=== PATIENT | female | born 1980 | race Caucasian/White ===

== ENCOUNTER 2016-09-25 19:53 | Emergency (ER) | payer OTHER ==
--- NOTE | 2016-09-26 02:19 | ER Document Report ---
ED General - General Chief Complaint: Abdominal Pain Stated Complaint: FALL/SIDE PAIN Notes: Patient is a 36-year-old female presents with complaint of being 16 weeks and falling. She says she slipped on a piece of paper fell onto her left side. Some mild pain in left hip. Some mild pain in her left side. She also hit her elbow but says she does have some bruising there. She has no pain with range of motion of her elbow. She does have some pain in her left knee but says she has chronic arthritis in her left knee and has still been able to bear weight and walk without difficulty. She's had no vaginal bleeding. No other complaints at this time. Previous records show that she is AB+. TRAVEL OUTSIDE OF THE [place] IN LAST 30 DAYS: No - Related Data Allergies/Adverse Reactions: Sulfa (Sulfonamide Antibiotics) Adverse Reaction (Severe, Verified 08/21/12 15: 21) trouble breathing naproxen [From Naprosyn] Adverse Reaction (Mild, Verified 08/21/12 15:21) Hives Past Medical History - Social History Smoking Status: Never Smoker Frequency of alcohol use: None Drug Abuse: None Family History: Reviewed & Not Pertinent Patient has suicidal ideation: No Patient has homicidal ideation: No - Past Medical History Cardiac Medical History: Denies: Hx Coronary Artery Disease, Hx Heart Attack, Hx Hypertension Pulmonary Medical History: Denies: Hx Asthma, Hx Bronchitis, Hx COPD, Hx Pneumonia Neurological Medical History: Denies: Hx Cerebrovascular Accident, Hx Seizures Renal/ Medical History: Denies: Hx Peritoneal Dialysis GI Medical History: Reports: Hx Gastroesophageal Reflux Disease Musculoskeltal Medical History: Reports Hx Arthritis Past Surgical History: Reports: Hx Appendectomy, Hx Cholecystectomy. Denies: Hx Hysterectomy - Immunizations Hx Diphtheria, Pertussis, Tetanus Vaccination: No Review of Systems - Review of Systems Notes: My Normal Review Basic REVIEW OF SYSTEMS: CONSTITUTIONAL : Denies fever, chills, or sweats. Denies recent illness. CARDIOVASCULAR: Denies chest pain. RESPIRATORY: Denies cough, cold, or chest congestion. Denies shortness of breath, difficulty breathing, or wheezing. GASTROINTESTINAL: Mild left-sided abdominal pain. Denies nausea, vomiting, or diarrhea. Denies constipation. Last BM: GENITOURINARY: Denies difficulty urinating, painful urination, burning, frequency, or blood in urine. FEMALE GENITOURINARY: Denies vaginal bleeding, abnormal or irregular periods. LMP: Currently 16 weeks . MUSCULOSKELETAL: Mild left hip pain. Mild left elbow pain. SKIN: Denies rash or skin lesions. NEUROLOGICAL: Denies altered mental status or loss of consciousness. Denies headache. Denies weakness or paralysis or loss of use of either side. Denies problems with gait or speech. Denies sensory or motor loss. ALL OTHER SYSTEMS REVIEWED AND NEGATIVE. Physical Exam - Vital signs Vitals: Temp Pulse Resp BP Pulse Ox 98.3 F 81 18 130/60 H 98 09/25/16 20:51 09/25/16 20:51 09/25/16 20:51 09/25/16 20:51 09/25/16 20:51 - Notes Notes: General Appearance: Well nourished, alert, cooperative, no acute distress, no obvious discomfort. Well-appearing. Vitals: reviewed, See vital signs table. Head: no swelling or tenderness to the head Eyes: PERRL, EOMI, Conjuctiva clear Neck: Supple, no neck tenderness, Lungs: No wheezing, No rales, No rhonci, No accessory muscle use, good air exchange bilaterally. Heart: Normal rate, Regular rythm, No murmur, no rub Abdomen: Normal BS, soft, No rigidity, No reproducible abdominal tenderness to palpation, No guarding, no rebound, no abdominal masses, no organomegaly Back: No tenderness to palpation of the thoracic or lumbar spine. No step-offs or deformities. Extremities: strength 5/5 in all extremities, good pulses in all extremities, small bruise of her elbow. Patient has full flexion-extension of her elbow without pain or difficulty. She has full supination and pronation of the elbow without pain or difficulty. Very minimal pain palpation of the elbow. No pain in the wrist or hand. No pain in left shoulder. Patient has mild pain to palpation of left hip. She still is full range of motion of the hip without difficulty. She has some mild pain to left knee with full flexion. No bruising or swelling to the knee itself. She is able to bear weight without difficulty. Right-sided extremities are nontender., no edema. Skin: warm, dry, appropriate color, no rash Neuro: speech clear, oriented x 3, normal affect, responds appropriately to questions. Cranial nerves II through XII are intact. Course - Vital Signs Vital signs: Temp Pulse Resp BP Pulse Ox 98.3 F 85 16 119/68 100 09/25/16 20:51 09/26/16 04:14 09/26/16 04:14 09/26/16 04:14 09/26/16 04:14 - Transfer of Care Notes: 09/26/16 05:21 Patient is well-appearing. Her ultrasound shows normal IUP with good activity heart rate. At this time for patient safety discharged home. She is no bruising or swelling to abdomen. There is no indication for x-rays at this time. Encourage her to return to ER shows worsening pain, vaginal bleeding, or feels unwell. Patient agrees with plan and will be discharged home. Dictation of this chart was performed using voice recognition software; therefore, there may be some unintended grammatical errors. Discharge - Discharge Clinical Impression: Fall Qualifiers: Encounter type: initial encounter Qualified Code(s): W19.XXXA - Unspecified fall, initial encounter Qualifiers: Weeks of gestation: unspecified Qualified Code(s): Z33.1 - state, incidental Condition: Good Disposition: HOME, SELF-CARE Additional Instructions: Please return to the ER immediately if you have vaginal bleeding, severe abdominal pain, or feel unwell. Follow up with your OB doctor in 2-3 days for reevaluation.
[2016-09-26 04:15] VITALS: BP 119/68
== END 2016-09-26 04:13 | disposition home or self-care (01) ==
LOC: ER 19:53
DX: O9A.212 Injury, poisoning and certain other consequences of external causes complicating pregnancy, second trimester (principal); S50.00XA Contusion of unspecified elbow, initial encounter; W01.0XXA Fall on same level from slipping, tripping and stumbling without subsequent striking against object, initial encounter; O26.892 Other specified pregnancy related conditions, second trimester; R10.9 Unspecified abdominal pain; O99.89 Other specified diseases and conditions complicating pregnancy, childbirth and the puerperium; M25.552 Pain in left hip; M25.522 Pain in left elbow; M17.12 Unilateral primary osteoarthritis, left knee; Z3A.16 16 weeks gestation of pregnancy
CPT/HCPCS: 76805; 93976; 99284

== ENCOUNTER 2016-11-05 19:10 | Outpatient (CLI) | payer OTHER ==
[2016-11-05 20:08] LABS: APPEARANCE,URINE CLOUDY; BILIRUBIN,URINE NEGATIVE (NEGATIVE); GLUCOSE, URINE NEGATIVE (NEGATIVE); KETONES,URINE NEGATIVE (NEGATIVE); LEUKOCYTE ESTERASE,URINE MODERATE (NEGATIVE); NITRITE,URINE NEGATIVE (NEGATIVE); PROTEIN,URINE 30 mg/dL (NEGATIVE); URINE SPECIFIC GRAVITY 1.017; UROBILINOGEN,URINE NEGATIVE mg/dL (<2.0)
[2016-11-05] MEDS ORDERED: ONDANSETRON 4 MG TAB.RAPDIS PO ONE (20:15)
[2016-11-05] MEDS ORDERED: ONDANSETRON 4 MG TAB.RAPDIS ONE (20:20)
[2016-11-05 20:32] LABS: URINE BARBITURATES SCREEN NEGATIVE; URINE METHADONE SCREEN NEGATIVE; URINE OPIATES LOW NEGATIVE; URINE PHENCYCLIDINE SCREEN NEGATIVE
--- NOTE | 2016-11-05 21:22 | RADIOLOGY REPORT (SQ) ---
EXAM DESCRIPTION: U/S OB LIMITED COMPLETED DATE/TIME: 11/05/2016 8:54 pm REASON FOR STUDY: cervical length pre term labor COMPARISON: None. TECHNIQUE: Limited transvaginal and transabdominal grayscale ultrasound for evaluation of specific r equested obstetrical parameters. LIMITATIONS: None. FINDINGS: CERVICAL LENGTH: 3.1 cm Closed. FHR: 158 beats per minute. OTHER: No other significant findings. IMPRESSION: LIMITED OBSTETRICAL ULTRASOUND WITH MEASURED PARAMETERS DELINEATED ABOVE. Trimester of : Third trimester - 28 weeks to delivery. TECHNICAL DOCUMENTATION: JOB ID: [id number] [employer]- All Rights Reserved
[2016-11-05] MEDS ORDERED: ACETAMINOPHEN 325 MG TABLET ONE (21:24)
== END 2016-11-05 21:30 | disposition home or self-care (01) ==
LOC: LC 19:10
PROVIDERS: ATTEND Student in an Organized Health Care Education/Training Program
PROC: 4A1HXCZ Monitoring of Products of Conception, Cardiac Rate, External Approach (ICD-10-PCS; principal; 2016-11-05)
DX: O47.02 False labor before 37 completed weeks of gestation, second trimester (principal); O99.282 Endocrine, nutritional and metabolic diseases complicating pregnancy, second trimester; E86.0 Dehydration; R11.2 Nausea with vomiting, unspecified; Z3A.22 22 weeks gestation of pregnancy
CPT/HCPCS: 59899; 87086; 81001; 80307; 76815; S0119

== ENCOUNTER 2017-02-27 20:48 | Inpatient (IN) | payer OTHER ==
[2017-02-27] MEDS ORDERED: RINGERS SOLUTION,LACTATED 300 ML IV ONE (21:32)
[2017-02-27] MEDS ORDERED: RINGERS SOLUTION,LACTATED 1,000 ML IV PRN (21:32)
[2017-02-27] MEDS ORDERED: OXYTOCIN/NORMAL SALINE 20 UNIT/1,000 ML RTUINJ IV PRN (21:32)
[2017-02-27] MEDS ORDERED: ACETAMINOPHEN 325 MG TABLET PO PRN (21:32)
[2017-02-27] MEDS ORDERED: ZOLPIDEM TARTRATE 5 MG TABLET PO PRN (21:32)
[2017-02-27] MEDS ORDERED: DINOPROSTONE 10 MG VAGINAL INSERT.SR PV ONE (21:32)
[2017-02-27] MEDS ORDERED: MAG HYDROX/AL HYDROX/SIMETH SUSP 30 ML UDCUP PO PRN (21:32)
[2017-02-27] MEDS ORDERED: DINOPROSTONE 10 MG VAGINAL INSERT.SR ONE (21:46)
[2017-02-27 21:48] LABS: ABSOLUTE BASOPHILS # (AUTO) 0.1 10^3/uL (0.0-0.2); ABSOLUTE EOSINOPHILS # (AUTO) 0.1 10^3/uL (0.0-0.6); ABSOLUTE MONOCYTES (AUTO) 0.4 10^3/uL (0.1-1.4); ABSOLUTE NEUT (AUTO) 6.2 10^3/uL (1.7-8.2); BASOPHILS % (AUTO) 0.6 % (0-2); EOSINOPHILS % (AUTO) 0.7 % (0-6); HEMATOCRIT 30.7 % (36.0-47.0); HEMOGLOBIN 10.6 g/dL (12.0-15.5); HGB HCT DIFFERENCE 1.1; LYMPHOCYTES % (AUTO) 22.7 % (13-45); MEAN CORPUSCULAR HEMOGLOBIN 27.8 pg (27.0-33.4); MEAN CORPUSCULAR HGB CONC 34.5 g/dL (32.0-36.0); MEAN CORPUSCULAR VOLUME 81 fl (80-97); MONOCYTES % (AUTO) 4.6 % (3-13); RED BLOOD COUNT 3.81 10^6/uL (3.72-5.28); SEGMENTED NEUTROPHILS % (AUTO) 71.4 % (42-78); WHITE BLOOD COUNT 8.7 10^3/uL (4.0-10.5)
[2017-02-27 21:49] LABS: APPEARANCE,URINE SLIGHTLY-CLOUDY; BILIRUBIN,URINE NEGATIVE (NEGATIVE); GLUCOSE, URINE NEGATIVE (NEGATIVE); KETONES,URINE 20 mg/dL (NEGATIVE); LEUKOCYTE ESTERASE,URINE TRACE (NEGATIVE); NITRITE,URINE NEGATIVE (NEGATIVE); PROTEIN,URINE 30 mg/dL (NEGATIVE); URINE SPECIFIC GRAVITY 1.018
[2017-02-27 22:08] LABS: URINE BARBITURATES SCREEN NEGATIVE; URINE METHADONE SCREEN NEGATIVE; URINE OPIATES LOW NEGATIVE; URINE PHENCYCLIDINE SCREEN NEGATIVE
[2017-02-28] MEDS ORDERED: MISOPROSTOL 0.2 MG TABLET ONE (10:53)
[2017-02-28] MEDS ORDERED: OXYTOCIN/NORMAL SALINE 0 UNIT/0 ML RTUINJ ONE (10:54)
[2017-02-28] MEDS ORDERED: LIDOCAINE 1% INJ-PF (10 MG/ML) 30 ML SDV ONE (10:54)
[2017-02-28] MEDS ORDERED: OXYTOCIN/NORMAL SALINE 20 UNIT/1,000 ML RTUINJ ONE (12:37)
[2017-02-28] MEDS ORDERED: IBUPROFEN 800 MG TABLET ONE (15:56)
[2017-02-28] MEDS ORDERED: ACETAMINOPHEN 325 MG TABLET ONE ×2 (16:06→16:09)
--- NOTE | 2017-02-28 16:25 | Delivery Summary ---
Del Sum A-C Datetime Report Generated by CPN: 02/28/2017 16:25 DELIVERY PERSONNEL DELIVERY PERSONNEL: [id number] Delivery Doctor:: Elzbieta Diaz CNM Labor and Delivery Nurse:: Ernst Monique RN Nursery Nurse:: Ning Ruiz, RN MATERNAL INFORMATION Delivery Anesthesia: None Medications After Delivery: Pitocin Bolus-Please Comment Maternal Complications: None Provider Comments: SVDVM ISAURO with loose nuchal cord, reduced, compound rt hand delivered followed by body. vigorous, handed off to mother. Cord clamped after 2 min, cut per FOB. Placenta spont via harper. Apgars 9,9. EBL 150. Mother and stable. LABOR SUMMARY EDC: 03/07/2017 00:00 No. Babies in Womb: 1 Attempted: No Labor Anesthesia: None LABOR INFORMATION Onset of Labor: 02/28/2017 09:01 Complete Dilatation: 02/28/2017 13:39 Cervical Ripening Agents: Cervidil Oxytocin: Augmentation Group B Beta Strep: negative Steroids Given: None Reason Steroids Not Administered: Not Applicable MEMBRANES Membranes Rupture Method: Artificial Rupture of Membranes: 02/28/2017 09:06 Length of Rupture (hr): 4.75 Amniotic Fluid Color: Clear Amniotic Fluid Amount: Large Amniotic Fluid Odor: Normal STAGES OF LABOR Stage 1 hr: 4 Stage 1 min: 38 Stage 2 hr: 0 Stage 2 min: 12 Stage 3 hr: 0 Stage 3 min: 18 Total Time in Labor hr: 5 Total Time in Labor min: 8 VAGINAL DELIVERY Episiotomy: None Laceration #1: Perineal; Vaginal Laceration Extension #1: First Degree Laceration Repair: Yes Laceration Repair Note: 1* vaginal/perineal lac repaired with lidocaine and chromic suture BABY A INFORMATION Infant Delivery Date/Time: 02/28/2017 13:51 Method of Delivery: Vaginal Born in Route : No : N/A Forceps: N/A Vacuum Extraction: N/A Shoulder Dystocia : No PRESENTATION/POSITION BABY A Presentation: Cephalic Cephalic Presentation: Vertex Vertex Position: Right Occipital Anterior Breech Presentation: N/A PLACENTA INFORMATION BABY A Placenta Delivery Time : 02/28/2017 14:09 Placenta Method of Delivery: Spontaneous Placenta Status: Delivered SCORES BABY A Heart Rate 1 min: >100 bpm Resp Effort 1 min: Good Cry Reflex Irritability 1 min: Cough or Sneeze or Pulls Away Muscle Tone 1 min: Active Motion Color 1 min: Body [employer], Extremities Blue Resuscitation Effort 1 min: Tactile Stimulation SCORE 1 MIN: 9 Heart Rate 5 min: >100 bpm Resp Effort 5 min: Good Cry Reflex Irritability 5 min: Cough or Sneeze or Pulls Away Muscle Tone 5 min: Active Motion Color 5 min: Body [employer], Extremities Blue Resuscitation Effort 5 min: Tactile Stimulation SCORE 5 MIN: 9 INFORMATION BABY A Gestational Age at Delivery: 39.0 Gestational Status: Full Term- 39- 40.6 Weeks Outcome : Liveborn Infant Condition : Stable Infant Sex: Male IDENTIFICATION BABY A Infant Verification Date/Time: 02/28/2017 13:58 ID Band Number: [id number] Mother's Name Verified: Yes RN Verifying : Carolina Castro RN/Reshma Hernándezs,RN WEIGHT/LENGTH BABY A Infant Birthweight (gm): 3225 Infant Weight (lb): 7 Weight (oz): 2 Length (in): 21.50 Length (cm): 54.61 CORD INFORMATION BABY A No. Cord Vessels: 3 Nuchal Cord : Around Neck x1, Loose Nuchal Cord- Other: compound hand Cord Blood Taken: Yes-For Storage (Mom's Blood type +) Suction: Mouth ASSESSMENT BABY A Complications: None Physical Findings at Delivery: Within Normal Limits Infant Respirations: Appears Normal Skin to Skin: Yes Skin to Skin Time (min): 60 Cruise Counselor/ALS Called : No Care By: Jose Antonio Ruiz RNC Transferred To: Remains with Mother SIGNATURES Assignment: Bren Phan MD Signature: with User ID: [email or web address] : I was personally available for consultation and serving as supervising physician for the MLP.
--- NOTE | 2017-02-28 16:37 | Admission Physical ---
Datetime Report Generated by CPN: 02/28/2017 16:37 CURRENT ADMISSION Chief Complaint: Scheduled Induction of Labor Indication for Induction: Maternal Diabetes Indication for Induction: Term, Intrauterine ; No Active Labor; Intact Membranes; Induction of Labor Indication for Induction- Other: A2GDM Admit Plan: Admit to Unit; Initiate Labor Induction Protocol ALLERGIES Medication Allergies: Yes Medication Allergies: Sulfa (Sulfonamide Antibiotics)/SV/trouble breathi (11/05/2016); naproxen/MD/Hives (11/05/2016) Medication Allergies: Sulfa (Sulfonamide Antibiotics)/SV/trouble breathi (08/21/2012); naproxen/MD/Hives (08/21/2012) Latex: No Latex Allergies OBSTETRICAL HISTORY EDC: 03/07/2017 00:00 : 4 Para: 3 Term: 3 : 0 SAB: 0 IAB: 0 Ectopic: 0 Livin Cesareans: 0 VBACs: 0 Multiple Births: 0 Gestational Diabetes: Yes Rh Sensitization: No Incompetent Cervix: No BASILIO: No Infertility: No ART Treatment: No Uterine Anomaly: No IUGR: No Hx Previous C/S: No Macrosomia: No Hx Loss/Stillborn: No PIH: No Hx : No Placenta Previa/Abruption: No Depression/PP Depression: No PTL/PROM: No Post Hemorrhage: No Current Procedures: Ultrasound; NST Obstetrical History Comments: G1: 2006 39 wk G2: 2008 40.5 macrosomic G3: 40 wk delivered at home G4: current SEE RECORDS Alcohol: No Marijuana : No Cocaine: No Other Illicit Drugs: No Cigarettes: Never Smoker. [id number] MEDICAL HISTORY Diabetes Type: Gestational Diabetes Blood Transfusion: No Pulmonary Disease (Asthma, TB): No Breast Disease: No Hypertension: No Vp Care Management Surgery: No Heart Disease: No Hosp/Surgery: Yes Autoimmune Disorder: No Anesthetic Complications: No Kidney Disease: No Abnormal Pap Smear: No Neuro/Epilepsy: No Psychiatric Disorders: No Other Medical Diseases: No Hepatitis/Liver Disease: No Significant Family History: No Varicosities/Phlebitis: No Trauma/Violence : No Thyroid Dysfunction: No Medical History Comments: Appendectomy 2000, gallbladder 2000 INFECTIOUS HISTORY Gonorrhea: No Genital Herpes: No Chlamydia: No Tuberculosis: No Syphilis: No Hepatitis: No HIV/AIDS Exposure: No Rash or Viral Illness: No PHYSICAL EXAM General: Normal HEENT: Normal Neurologic: Normal Thyroid: Normal Heart: Normal Lungs: Normal Breast: Deferred Back: Normal Abdomen: Normal Genitourinary Exam: Normal Extremities: Normal DTRs: Normal Pelvic Type: Adequate Vital Signs: Reviewed VAGINAL EXAM Dilatation: 0 Effacement: 0 Station: -3 Contraction Comments: 0 MEMBRANES Membranes: Intact FETUS A EGA: 38.6 Monitoring: External US FHR- Baseline: 155 Variability: Moderate 6-25bpm Accelerations: 15X15 Decelerations: None FHR Category: Category I Presentation: Vertex Admit Comment: 36yo at 38+6ega presents for IOL due to A2GDM on Glyburide 1.25mg po Qam. c/b A2GDM and h/o precipitous delivery at home in the past. EFW on 02/11 was 41.3% 2855g. Pt has had intermittent polyhydramnios. Last LEVY 25.11 and SDP 7.21 - by SDP not polyhydramnios. Pt o/w doing well. unfavorable cervix but h/o prior deliveries. cvx ft//hi. Admit for cervidil. Poss cooks catheter and pitocin in the am depending on cervical exam when cervidil is up. CAT I FHR tracing. Anticpate PLANS FOR LABOR AND DELIVERY Labor and Delivery: None Pain Management: Natural Feeding Preference: Breast Benefit of Breast Feed Discussed: Yes Circumcision: Yes INFORMED CONSENT Informed Consent Obtained: Vaginal Delivery; Induction of Labor; Risks, Benefits and Alternatives Discussed Signature: Electronically signed by Claudia Ordonez MD ([facility]) on 02/27/2017 at 22:56 with User ID: [email or web address]
[2017-02-28] MEDS ORDERED: OXYTOCIN/NORMAL SALINE 20 UNIT/1,000 ML RTUINJ IV PRN (16:54)
[2017-02-28] MEDS ORDERED: BENZOCAINE/MENTHOL AEROSOL SPRAY 56 ML TOP PRN (16:54)
[2017-02-28] MEDS ORDERED: MEASLES,MUMPS&RUBELLA VACC/PF 0.5 ML VIAL SUBCUT PRN (16:54)
[2017-02-28] MEDS ORDERED: ACETAMINOPHEN WITH CODEINE #3 TABLET PO PRN ×2 (16:54)
[2017-02-28] MEDS ORDERED: DIBUCAINE 1% OINTMENT 28 GM TP PRN (16:54)
[2017-02-28] MEDS ORDERED: DIPH/PERTUSS(ACELL)/TETANUS VAC/PF 0.5 ML SYR (>=10YO) IM PRN (16:54)
[2017-02-28] MEDS ORDERED: ZOLPIDEM TARTRATE 5 MG TABLET PO PRN (16:54)
[2017-02-28] MEDS: DOCUSATE SODIUM 100 MG CAPSULE PO SCH (18:16)
[2017-02-28] MEDS: FERROUS SULFATE 325 MG TABLET PO SCH (18:16)
[2017-02-28] MEDS: IBUPROFEN 800 MG TABLET PO SCH (21:44)
[2017-03-01] MEDS: IBUPROFEN 800 MG TABLET PO SCH ×3 (05:45→22:23)
[2017-03-01 07:37] LABS: HEMATOCRIT 32.2 % (36.0-47.0); HEMOGLOBIN 10.7 g/dL (12.0-15.5); HGB HCT DIFFERENCE -0.1; MEAN CORPUSCULAR HEMOGLOBIN 27.1 pg (27.0-33.4); MEAN CORPUSCULAR HGB CONC 33.2 g/dL (32.0-36.0); MEAN CORPUSCULAR VOLUME 82 fl (80-97); RED BLOOD COUNT 3.94 10^6/uL (3.72-5.28); RED CELL DISTRIBUTION WIDTH 15.2 % (11.5-14.0)
[2017-03-01] MEDS: PRENATAL VITAMIN W-O CA NO5/FE FUMARATE/FA CAPSULE PO SCH (09:37)
[2017-03-01] MEDS: SENNOSIDES/DOCUSATE 8.6-50 MG 1 EACH TABLET PO SCH (09:38)
[2017-03-01] MEDS: DOCUSATE SODIUM 100 MG CAPSULE PO SCH ×2 (09:38→17:49)
[2017-03-01] MEDS: FERROUS SULFATE 325 MG TABLET PO SCH ×2 (09:38→17:49)
--- NOTE | 2017-03-01 10:26 | PDOC PROGRESS REPORT ---
Subjective-OB Subjective: Post Delivery Day: 1 36 year old. Denies any needs at this time, states lochia is stable, pain is well controlled, voiding without difficulty, passing gas, tolerating diet. Physical Exam (OB) Vital Signs: Temp Pulse Resp BP Pulse Ox 97.9 F 64 16 106/58 L 99 03/01/17 07:42 03/01/17 07:42 03/01/17 07:42 03/01/17 07:42 03/01/17 07:42 Intake & Output 02/28/17 03/01/17 03/02/17 06:59 06:59 06:59 Weight 101.05 kg - Lochia Lochia Amount: Small 10-25 ml Lochia Color: Rubra/Red - Abdomen Description: Soft, Round Hernia Present: No Fundal Description: Firm, Midline Fundal Height: u/u - u/2 Objective-Diagnostic Laboratory: 03/01/17 06:50 03/01/17 06:50 WBC 9.0 RBC 3.94 Hgb 10.7 L Hct 32.2 L MCV 82 MCH 27.1 MCHC 33.2 RDW 15.2 H Plt Count 172 Assessment and Plan(PN) - Assessment and Plan (1) Delivery normal Is this a current diagnosis for this admission?: Yes Plan: routine pp care - Time Spent with Patient Time with patient: Less than 15 minutes Critical Time spent with patient: Less than 15 minutes Medications reviewed and adjusted accordingly: Yes - Disposition Anticipated Discharge: Home Within: within 24 hours
[2017-03-02] MEDS: IBUPROFEN 800 MG TABLET PO SCH (06:18)
[2017-03-02] MEDS: FERROUS SULFATE 325 MG TABLET PO SCH (09:04)
[2017-03-02] MEDS: DOCUSATE SODIUM 100 MG CAPSULE PO SCH (09:04)
[2017-03-02] MEDS: PRENATAL VITAMIN W-O CA NO5/FE FUMARATE/FA CAPSULE PO SCH (09:04)
[2017-03-02] MEDS: SENNOSIDES/DOCUSATE 8.6-50 MG 1 EACH TABLET PO SCH (09:04)
[2017-03-02 09:33] VITALS: BP 118/65
--- NOTE | 2017-03-02 09:36 | PDOC DISCHARGE SUMMARY ---
Final Diagnosis Discharge Date: 03/02/17 - Final Diagnosis (1) Delivery normal Is this a current diagnosis for this admission?: Yes Discharge Data - Discharge Medication Home Medications: No122/Iron/Folic Acid [ Multi Tablet] 1 tab PO DAILY 11/05/16 Ranitidine HCl [Zantac 150 mg Tablet] 150 mg PO DAILY MDD 1 tab 11/05/16 Docusate Sodium [Colace 100 mg Capsule] 100 mg PO BID #60 capsule 03/02/17 Ibuprofen [Motrin 800 mg Tablet] 800 mg PO Q8 #60 tablet 03/02/17 Gestational Age: 39 Reason(s) for Admission: Induction of Labor, Gestional Diabetes Procedures: NST Intrapartum Procedure(s): Spontaneous Vaginal Delivery Complication(s): Laceration-Vaginal Laceration-Degree: 1st - [place] Data Baby 1 Male at 1 minute: 9 at 5 minutes: 9 Weight: 3225 kg Home with Mother: Yes Complications: No - Diagnosis Test Laboratory: Temp Pulse Resp BP Pulse Ox 97.8 F 80 16 118/65 98 03/02/17 09:28 03/02/17 09:28 03/02/17 09:28 03/02/17 09:28 03/02/17 09:28 02/27/17 02/27/17 03/01/17 21:08 21:34 06:50 RBC 3.81 3.94 Hgb 10.6 L 10.7 L Hct 30.7 L 32.2 L Urine Opiates Screen NEGATIVE - Discharge information/Instructions Discharge Activity: Activity As Tolerated, No Lifting Over 10 Pounds, Pelvic Rest, No tub bath Discharge Diet: Regular Disposition: HOME, SELF-CARE Follow up with: [facility] in: 4, Weeks
== END 2017-03-02 11:57 | disposition home or self-care (01) | DRG 775 ==
LOC: LR 20:48 → 2S 02-28 16:35
PROVIDERS: ADMIT Student in an Organized Health Care Education/Training Program; ATTEND Student in an Organized Health Care Education/Training Program
PROC: 4A1HXCZ Monitoring of Products of Conception, Cardiac Rate, External Approach (ICD-10-PCS; 2017-02-27)
PROC: 10E0XZZ Delivery of Products of Conception, External Approach (ICD-10-PCS; principal; 2017-02-28)
PROC: 0HQ9XZZ Repair Perineum Skin, External Approach (ICD-10-PCS; 2017-02-28)
PROC: 10907ZC Drainage of Amniotic Fluid, Therapeutic from Products of Conception, Via Natural or Artificial Opening (ICD-10-PCS; 2017-02-28)
DX: O24.425 Gestational diabetes mellitus in childbirth, controlled by oral hypoglycemic drugs (principal); O69.81X0 Labor and delivery complicated by cord around neck, without compression, not applicable or unspecified; O70.0 First degree perineal laceration during delivery; O32.6XX0 Maternal care for compound presentation, not applicable or unspecified; Z3A.39 39 weeks gestation of pregnancy; Z37.0 Single live birth
CPT/HCPCS: 36415; 80307; 81005; 85025; 85027; 86592; 86850; 86900; 86901; J2590; J3490

== ENCOUNTER 2017-11-07 17:52 | Emergency (ER) | payer OTHER ==
[2017-11-07] MEDS ORDERED: ONDANSETRON 4 MG TAB.RAPDIS PO ONE (18:20)
[2017-11-07] MEDS ORDERED: FENTANYL CITRATE INJ/PF 100 MCG/2 ML AMPUL IV ONE (18:20)
[2017-11-07] MEDS ORDERED: NORMAL SALINE 1000 ML 1,000 ML IV ONE (18:20)
--- NOTE | 2017-11-07 18:22 | ER Document Report ---
ED Medical Screen (RME) - General Chief Complaint: Flank Pain Stated Complaint: RIGHT SIDE BACK PAIN Time Seen by Provider: 11/07/17 18:17 Notes: RAPID MEDICAL EVALUATION DISCLOSURE I have seen this patient as part of a Rapid Medical Evaluation and, if applicable, placed any initially appropriate orders. The patient will be seen and fully evaluated, including a full history and physical exam, by a provider ( in Main ED or Fast Track) when a room becomes available. 37-year-old female here with complaints of right flank pain that started yesterday and has progressively worsened. The pain is radiating down to her right groin. She also started to have nausea and vomiting today. She denies dysuria hematuria frequency hesitancy diarrhea fevers chills. She does not have any history of kidney stones however she does have a history of kidney stones in her father and sister. EXAM Mild right CVA TTP Mild RUQ TTP TRAVEL OUTSIDE OF THE [place] IN LAST 30 DAYS: No - Related Data Allergies/Adverse Reactions: Sulfa (Sulfonamide Antibiotics) Adverse Reaction (Severe, Verified 11/07/17 17: 54) trouble breathing naproxen [From Naprosyn] Adverse Reaction (Mild, Verified 11/07/17 17:54) Hives Past Medical History - Social History Chew tobacco use (# tins/day): No Frequency of alcohol use: None Drug Abuse: None - Past Medical History Cardiac Medical History: Denies: Hx Coronary Artery Disease, Hx Heart Attack, Hx Hypertension Pulmonary Medical History: Denies: Hx Asthma, Hx Bronchitis, Hx COPD, Hx Pneumonia Neurological Medical History: Denies: Hx Cerebrovascular Accident, Hx Seizures Renal/ Medical History: Denies: Hx Peritoneal Dialysis GI Medical History: Reports: Hx Gastroesophageal Reflux Disease Musculoskeltal Medical History: Reports Hx Arthritis Past Surgical History: Reports: Hx Appendectomy, Hx Cholecystectomy. Denies: Hx Hysterectomy - Immunizations Hx Diphtheria, Pertussis, Tetanus Vaccination: No History of Influenza Vaccine for 02/2017 - 07/2017 Season: No Physical Exam - Vital signs Vitals: Temp Pulse Resp BP Pulse Ox 98.1 F 63 20 143/87 H 99 11/07/17 18:06 11/07/17 18:06 11/07/17 18:06 11/07/17 18:06 11/07/17 18:06 Course - Vital Signs Vital signs: Temp Pulse Resp BP Pulse Ox 98.1 F 63 20 143/87 H 99 11/07/17 18:06 11/07/17 18:06 11/07/17 18:06 11/07/17 18:06 11/07/17 18:06 Doctor's Discharge - Discharge Referrals: MATA IRENE MD [Primary Care Provider] - Follow up as needed
--- NOTE | 2017-11-07 18:50 | ER Document Report ---
ED General - General Mode of Arrival: Ambulatory Information source: Patient <ESTHER JONAS - Last Filed: 11/08/17 02:37> <WALLACE BOURGEOIS - Last Filed: 11/08/17 03:45> - General Chief Complaint: Flank Pain Stated Complaint: RIGHT SIDE BACK PAIN Time Seen by Provider: 11/07/17 18:17 Notes: Patient is a 37 year old female presenting to the emergency department complaining of right lower quadrant abdominal, right sided flank pain, and right leg pain onset yesterday. Patient states her pain started in her right lower quadrant and radiated into the right side of her back and down her right leg, further stating the pain has progressively worsened. Patient mentions taking an Ibuprofen 800 in attempt to alleviate her pain further stating it did not help. Patient's associated symptoms include nausea, vomiting, and vaginal discharge. Patient denies chest pain, trouble breathing, diarrhea, fevers, urinary burning or frequency, dysuria, hematuria, or vaginal bleeding. Patient mentions currently breast feeding her 8 month old son. (ESTHER JONAS) - Related Data Allergies/Adverse Reactions: Sulfa (Sulfonamide Antibiotics) Adverse Reaction (Severe, Verified 11/07/17 17: 54) trouble breathing naproxen [From Naprosyn] Adverse Reaction (Mild, Verified 11/07/17 17:54) Hives Past Medical History - General Information source: Patient - Social History Smoking Status: Never Smoker Chew tobacco use (# tins/day): No Frequency of alcohol use: None Drug Abuse: None Family History: Other - Kidney stones Patient has suicidal ideation: No Patient has homicidal ideation: No GI Medical History: Reports: Hx Gastroesophageal Reflux Disease Musculoskeltal Medical History: Reports Hx Arthritis Past Surgical History: Reports: Hx Appendectomy, Hx Cholecystectomy - Immunizations Hx Diphtheria, Pertussis, Tetanus Vaccination: No <ESTHER JONAS - Last Filed: 11/08/17 02:37> Review of Systems - Review of Systems Constitutional: No symptoms reported EENT: No symptoms reported Cardiovascular: No symptoms reported Respiratory: No symptoms reported Gastrointestinal: See HPI, Abdominal pain, Nausea, Vomiting Genitourinary: No symptoms reported Female Genitourinary: See HPI, Vaginal discharge Musculoskeletal: See HPI, Back pain Skin: No symptoms reported Hematologic/Lymphatic: No symptoms reported Neurological/Psychological: No symptoms reported -: Yes All other systems reviewed and negative <ESTHER JONAS - Last Filed: 11/08/17 02:37> Physical Exam <ESTHER JONAS - Last Filed: 11/08/17 02:37> <WALLACE BOURGEOIS - Last Filed: 11/08/17 03:45> - Vital signs Vitals: Temp Pulse Resp BP Pulse Ox 98.1 F 63 20 143/87 H 99 11/07/17 18:06 11/07/17 18:06 11/07/17 18:06 11/07/17 18:06 11/07/17 18:06 - Notes Notes: GENERAL: Alert, appears uncomfortable. HEAD: Normocephalic, atraumatic. EYES: Pupils equal, round, and reactive to light. Extraocular movements intact. ENT: Oral mucosa moist, tongue midline. NECK: Full range of motion. Supple. Trachea midline. LUNGS: Tachypneic. Clear to auscultation bilaterally, no wheezes, rales, or rhonchi. No respiratory distress. HEART: Regular rate and rhythm. No murmurs, gallops, or rubs. ABDOMEN: Clutching right side of abdomen. Soft, tender to palpation to the epigastric area and RLQ. Non-distended. Bowel sounds present in all 4 quadrants. EXTREMITIES: Moves all 4 extremities spontaneously. NEUROLOGICAL: Alert and oriented x3. Normal speech. Biceps and patellar DTRs 2+ bilaterally. PSYCH: Normal affect, normal mood. SKIN: Warm, dry, normal turgor. No rashes or lesions noted. BACK: Right sided CVA tenderness to percussion. (PRITESHESTHER LIM) Course - Laboratory Result Diagrams: 11/07/17 19:01 11/07/17 19:01 <PRITESH,TAMOTILIO - Last Filed: 11/08/17 02:37> - Laboratory Result Diagrams: 11/07/17 19:01 11/07/17 19:01 <WALLACE BOURGEOIS - Last Filed: 11/08/17 03:45> - Re-evaluation Re-evalutation: 11/07/17 22:26 CBC shows no leukocytosis, white count is normal at 8.1, there is no left shift , chemistries grossly unremarkable, no renal failure, urinalysis shows moderate blood and moderate leukocyte esterase, WBCs of 39, RBCs greater than 182, 2+ bacteria and 4 squamous epithelial cells, gonorrhea and chlamydia not detected in the dirty urine, test is negative, CT scan of the abdomen and pelvis shows 1.2 cm calcified stone in the proximal right ureter with severe hydroureteronephrosis. I discussed this patient with Dr. Smith the urologist on -call at [facility], I was concerned by the bacteria and the white blood cells in the urine, he states that they do not put in emergent stents unless the patient is febrile or hypotensive. States that typically patients do better if they had an initial dose or 2 of antibiotics in their system before the stent the patient, recommends discharge to home at this point after reviewing the patient's laboratory studies with me, recommends treatment with Rocephin and Bactrim however patient is allergic to sulfa drugs so we will use ciprofloxacin instead. Patient was counseled to avoid breast-feeding for 3-4 hours after taking the Cipro and to monitor her child for diarrhea. Patient is going to follow-up with Dr. Smith in their [place] office first thing tomorrow morning and she will return here should she develop uncontrollable pain , fevers or any new or concerning symptoms. (WALLACE BOURGEOIS) - Vital Signs Vital signs: Temp Pulse Resp BP Pulse Ox 98.4 F 60 16 104/60 96 11/07/17 22:00 11/07/17 22:02 11/07/17 22:02 11/07/17 22:02 11/07/17 22:02 - Laboratory Laboratory results interpreted by me: 11/07/17 11/07/17 18:30 19:01 Sodium 146.4 H Chloride 109 H ALT 66 H Urine Protein 100 H Urine Blood MODERATE H Urine Urobilinogen 2.0 H Ur Leukocyte Esterase MODERATE H Discharge <ESTHER JONAS - Last Filed: 11/08/17 02:37> <WALLACE BOURGEOIS - Last Filed: 11/08/17 03:45> - Discharge Clinical Impression: Right ureteral calculus, Hydronephrosis due to obstruction of ureter Condition: Stable Disposition: HOME, SELF-CARE Additional Instructions: You have a 1.2 cm kidney stone on the right-hand side. You should call Dr. Smith and arrange a follow-up appointment for his [place] office first thing tomorrow morning. Please use ibuprofen (Motrin or Advil) 600-800 mg every 8 hours as needed for pain or fever. You may also use acetaminophen (Tylenol) 1000 mg every 4-6 hours as needed for pain or fever. Please be aware that many medications contain acetaminophen, do not exceed a total of 1000 mg of acetaminophen every 6 hours. If the haye-[id number] medications do not control your pain when combined with Pyridium and Flomax please use the [place] as directed. Please return to the emergency department for fever of 100.4 or higher, confusion or any new or concerning symptoms. You are always welcome to return here, however Dr. Smith recommends you go to [facility] as that is where he works and he can place a stent there if you return there. [facility] * Address: [address] [place] [address], [place] [address] * Prescriptions: Hydrocodone/Acetaminophen [[place] 5-325 mg Tablet] 1 - 2 tab PO Q4HP PRN #20 tab PRN Reason: For Breakthrough Pain Ciprofloxacin HCl [Cipro 500 mg Tablet] 500 mg PO BID #14 tablet Phenazopyridine HCl [Pyridium 200 mg Tablet] 200 mg PO TIDP PRN #15 tablet PRN Reason: Tamsulosin HCl [Flomax 0.4 mg Cap.sr] 0.4 mg PO DAILY #7 cap.sr.24h Referrals: KRYSTYNA SMITH MD [NO LOCAL MD] - Follow up tomorrow (Call first thing in the morning to arrange a follow-up appointment.) Scribe Attestation: 11/08/17 03:45 I personally performed the services described in the documentation, reviewed and edited the documentation which was dictated to the scribe in my presence, and it accurately records my words and actions. (WALLACE BOURGEOIS) Scribe Documentation - Scribe Written by Dwain:: Dwain Baxter, 11/07/2017 19:23 acting as scribe for :: Jordan <ESTHER JONAS - Last Filed: 11/08/17 02:37>
[2017-11-07 18:52] LABS: APPEARANCE,URINE CLOUDY; BILIRUBIN,URINE NEGATIVE (NEGATIVE); COLOR,URINE YELLOW; GLUCOSE, URINE NEGATIVE (NEGATIVE); KETONES,URINE NEGATIVE (NEGATIVE); LEUKOCYTE ESTERASE,URINE MODERATE (NEGATIVE); NITRITE,URINE NEGATIVE (NEGATIVE); PROTEIN,URINE 100 mg/dL (NEGATIVE); URINE SPECIFIC GRAVITY 1.027
[2017-11-07 19:12] LABS: ABSOLUTE BASOPHILS # (AUTO) 0.1 10^3/uL (0.0-0.2); ABSOLUTE EOSINOPHILS # (AUTO) 0.1 10^3/uL (0.0-0.6); ABSOLUTE MONOCYTES (AUTO) 0.5 10^3/uL (0.1-1.4); ABSOLUTE NEUT (AUTO) 5.5 10^3/uL (1.7-8.2); BASOPHILS % (AUTO) 0.8 % (0-2); EOSINOPHILS % (AUTO) 1.6 % (0-6); HEMATOCRIT 38.3 % (36.0-47.0); HEMOGLOBIN 13.3 g/dL (12.0-15.5); LYMPHOCYTES % (AUTO) 24.6 % (13-45); MEAN CORPUSCULAR HEMOGLOBIN 28.9 pg (27.0-33.4); MEAN CORPUSCULAR HGB CONC 34.8 g/dL (32.0-36.0); MEAN CORPUSCULAR VOLUME 83 fl (80-97); MONOCYTES % (AUTO) 5.9 % (3-13); PLATELET COUNT 255 10^3/uL (150-450); RED BLOOD COUNT 4.61 10^6/uL (3.72-5.28); SEGMENTED NEUTROPHILS % (AUTO) 67.1 % (42-78); TOTAL CELLS COUNTED % (AUTO) 100 %; WHITE BLOOD COUNT 8.1 10^3/uL (4.0-10.5)
[2017-11-07 19:31] LABS: ALANINE AMINOTRANSFERASE 66 U/L (9-52); ALBUMIN 4.2 g/dL (3.5-5.0); ALKALINE PHOSPHATASE 69 U/L (38-126); ANION GAP 12 (5-19); ASPARTATE AMINO TRANSFERASE 35 U/L (14-36); BILIRUBIN,DIRECT 0.1 mg/dL (0.0-0.4); BILIRUBIN,TOTAL 0.4 mg/dL (0.2-1.3); BLOOD UREA NITROGEN 14 mg/dL (7-20); CALCIUM 8.9 mg/dL (8.4-10.2); CARBON DIOXIDE 25 mmol/L (22-30); CHLORIDE 109 mmol/L (98-107); GLUCOSE 100 mg/dL (75-110); LIPASE 76.2 U/L (23-300); SODIUM 146.4 mmol/L (137-145); TOTAL PROTEIN 6.9 g/dL (6.3-8.2)
--- NOTE | 2017-11-07 19:34 | RADIOLOGY REPORT (SQ) ---
EXAM DESCRIPTION: CT LTD RENAL STONE PROTOCOL ON COMPLETED DATE/TIME: 11/07/2017 7:23 pm REASON FOR STUDY: R flank pain rad to groin COMPARISON: None. TECHNIQUE: CT scan of the abdomen and pelvis performed without intravenous or oral contrast. Images reviewed with lung, soft tissue, and bone windows. Reconstructed coronal and sagittal MPR images revi ewed. All images stored on PACS. All CT scanners at this facility use dose modulation, iterative reconstruction, and/or weight based d osing when appropriate to reduce radiation dose to as low as reasonably achievable (ALARA). [facility]: Dose Right [facility]: CareDose [facility]: Dose Right [facility]: Teradose 4D [facility]: Misfit Wearables RADIATION DOSE: mGy. LIMITATIONS: None. FINDINGS: LOWER CHEST: No significant findings. No nodules or infiltrates. NON-CONTRASTED LIVER, SPLEEN, ADRENALS: Evaluation limited by lack of IV contrast. No identified sign ificant masses. PANCREAS: No masses. No peripancreatic inflammatory changes. GALLBLADDER: Surgically absent. RIGHT KIDNEY AND URETER: No suspicious masses. Assessment limited by lack of IV contrast. 1.2 cm ca lcified stone in the proximal right ureter with severe hydroureteronephrosis. LEFT KIDNEY AND URETER: No suspicious masses. Assessment limited by lack of IV contrast. No signifi cant calcifications. No hydronephrosis or hydroureter. AORTA AND RETROPERITONEUM: No aneurysm. No retroperitoneal masses or adenopathy. BOWEL AND PERITONEAL CAVITY: No obvious masses or inflammatory changes. No free fluid. APPENDIX: Normal. PELVIS, BLADDER, AND ABDOMINAL WALL:No abnormal masses. No free fluid. Bladder normal. BONES: No significant findings. OTHER: No other significant finding. IMPRESSION: 1.2 cm calcified stone in the proximal right ureter with severe hydroureteronephrosis. COMMENT: Quality ID # [id number]: Final reports with documentation of one or more dose reduction techniques (e.g., Automated exposure control, adjustment of the mA and/or kV according to patient size, use of iterative reconstruction technique) TECHNICAL DOCUMENTATION: JOB ID: [id number]-72 2010 [employer]- All Rights Reserved Reading location - IP/workstation name: [email or web address]
[2017-11-07] MEDS ORDERED: CEFTRIAXONE 1 GM/D5W RTU 1 GM/50 ML RTUPB IV ONE (20:25)
[2017-11-07] MEDS ORDERED: KETOROLAC TROMETHAMINE INJ/PF 30 MG/1 ML SDV IV ONE (20:27)
[2017-11-07] MEDS ORDERED: OXYCODONE-ACETAMINOPHEN 5-325 MG TABLET PO ONE (20:51)
[2017-11-07 22:01] LABS: CHLAM PCR NOT DETECTED (NOT DETECT); GON PCR NOT DETECTED (NOT DETECT)
[2017-11-07 22:03] VITALS: BP 104/60
[2017-11-07] MEDS ORDERED: PHENAZOPYRIDINE HCL 200 MG TABLET PO ONE (22:29)
[2017-11-07] MEDS ORDERED: HYDROCODONE/ACETAMINOPHEN 5-325 MG (6 TAB/ER DISP) PO PRN (22:29)
== END 2017-11-07 22:52 | disposition home or self-care (01) ==
LOC: ER 17:52
DX: N13.2 Hydronephrosis with renal and ureteral calculous obstruction (principal); R10.31 Right lower quadrant pain; R11.2 Nausea with vomiting, unspecified; N89.8 Other specified noninflammatory disorders of vagina; Z88.2 Allergy status to sulfonamides; Z90.49 Acquired absence of other specified parts of digestive tract
CPT/HCPCS: 99284; 96361; 96375; 96365; 36415; 87040; 87086; 83690; 85025; 81025; 80053; 81001; 87491; 87591; 76380; S0119; J3010; J1885; J3490; J7030; J0696

== ENCOUNTER → 2017-11-11 | Outpatient (CLI) | payer OTHER ==
--- NOTE | 2017-11-11 15:51 | RADIOLOGY REPORT (SQ) ---
EXAM DESCRIPTION: KUB/ABDOMEN (SINGLE VIEW) COMPLETED DATE/TIME: 11/11/2017 2:46 pm REASON FOR STUDY: CALCULUS OF BOTH URETERS (N20.1) N20.1 CALCULUS OF URETER COMPARISON: None. NUMBER OF VIEWS: One view. TECHNIQUE: Supine radiographic image of the abdomen acquired. LIMITATIONS: None. FINDINGS: BOWEL GAS PATTERN: Normal bowel gas pattern. No dilated loops. CALCIFICATIONS: There is a 10 mm calcification in the region of the right UPJ. SOFT TISSUES: No gross mass or suggestion of organomegaly. HARDWARE: None in the abdomen. BONES: No acute fracture. No worrisome bone lesions. OTHER: No other significant finding. IMPRESSION: Calcification in the region of the right UPJ. TECHNICAL DOCUMENTATION: JOB ID: [id number] [employer]- All Rights Reserved Reading location - IP/workstation name: [email or web address]
== END ==
LOC: RAD 14:29
PROVIDERS: ATTEND Urology
DX: N20.1 Calculus of ureter (principal)
CPT/HCPCS: 74018

== ENCOUNTER → 2017-11-22 | Outpatient (CLI) | payer OTHER ==
--- NOTE | 2017-11-22 18:58 | RADIOLOGY REPORT (SQ) ---
EXAM DESCRIPTION: KUB/ABDOMEN (SINGLE VIEW) COMPLETED DATE/TIME: 11/22/2017 6:50 pm REASON FOR STUDY: N20.1 CALCULUS OF URETER N20.1 CALCULUS OF URETER COMPARISON: 11/11/2017 NUMBER OF VIEWS: One view. TECHNIQUE: Supine radiographic image of the abdomen acquired. LIMITATIONS: None. FINDINGS: BOWEL GAS PATTERN: Normal bowel gas pattern. No dilated loops. CALCIFICATIONS: Right nephrolithiasis fragmented. Steinstr[place] in the distal right ureter. SOFT TISSUES: No gross mass or suggestion of organomegaly. HARDWARE: None in the abdomen. BONES: No acute fracture. No worrisome bone lesions. OTHER: No other significant finding. IMPRESSION: Fragmented right nephrolithiasis. Steinstrasse the distal right ureter. TECHNICAL DOCUMENTATION: JOB ID: [id number] [employer]- All Rights Reserved Reading location - IP/workstation name: [email or web address]
== END ==
LOC: RAD 18:24
PROVIDERS: ATTEND Urology
DX: N20.1 Calculus of ureter (principal)
CPT/HCPCS: 74018

== ENCOUNTER → 2017-12-20 | Outpatient (CLI) | payer OTHER ==
--- NOTE | 2017-12-20 22:30 | RADIOLOGY REPORT (SQ) ---
EXAM DESCRIPTION: KUB/ABDOMEN (SINGLE VIEW) COMPLETED DATE/TIME: 12/20/2017 5:38 pm REASON FOR STUDY: N20.1 CALCULUS OF URETER N20.1 CALCULUS OF URETER 11/22/2017 COMPARISON: None. NUMBER OF VIEWS: One view. TECHNIQUE: Supine radiographic image of the abdomen acquired. LIMITATIONS: None. FINDINGS: BOWEL GAS PATTERN: Normal bowel gas pattern. No dilated loops. CALCIFICATIONS: An ovoid hyperdensity projecting in the mid right hemiabdomen is positioned lateral t o the expected course of the ureter, but may represent a nephrolith within the inferior pole. SOFT TISSUES: No gross mass or suggestion of organomegaly. HARDWARE: Cholecystectomy clips. BONES: No acute fracture. No worrisome bone lesions. OTHER: No other significant finding. IMPRESSION: And ovoid hyperdensity projecting within the mid right hemiabdomen may represent a right inferior pole nephrolith versus bowel contents. TECHNICAL DOCUMENTATION: JOB ID: [id number] [employer]- All Rights Reserved Reading location - IP/workstation name: [email or web address]
== END ==
LOC: RAD 17:21
PROVIDERS: ATTEND Urology
DX: N20.1 Calculus of ureter (principal)
CPT/HCPCS: 74018

== ENCOUNTER 2018-09-02 18:29 | Emergency (ER) | payer OTHER ==
[2018-09-02] MEDS ORDERED: ACETAMINOPHEN 325 MG TABLET PO ONE (20:52)
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
[2018-09-02 22:39] VITALS: BP 123/67
== END 2018-09-02 22:40 | disposition home or self-care (01) ==
LOC: ER 18:29
DX: M54.5 Low back pain (principal); V59.40XA Driver of pick-up truck or van injured in collision with unspecified motor vehicles in traffic accident, initial encounter; Z90.49 Acquired absence of other specified parts of digestive tract
CPT/HCPCS: 72110; 99283

== ENCOUNTER 2019-08-02 20:24 | Emergency (ER) | payer OTHER ==
--- NOTE | 2019-08-02 20:56 | ER Document Report ---
ED Medical Screen (RME) - General Chief Complaint: Possible Kidney Stone Stated Complaint: POSSIBLE KIDNEY STONE Time Seen by Provider: 08/02/19 20:51 Mode of Arrival: Ambulatory Information source: Patient Notes: This is a 39-year-old female with history of kidney stones presents emergency department with complaints of right lower quad pain that started around 1700 tonight with intense right-sided flank pain that started later. She reports history of kidney stones. Reports some nausea and vomiting. She took 800 mg of Motrin at around 1900 tonight. She declines nausea medicine at this time. Denies pain with void. Denies difficulty voiding. I have greeted and performed a rapid initial assessment of this patient. A comprehensive ED assessment and evaluation of the patient, analysis of test results and completion of the medical decision making process will be conducted by additional ED providers. TRAVEL OUTSIDE OF THE [place] IN LAST 30 DAYS: No - Related Data Allergies/Adverse Reactions: Sulfa (Sulfonamide Antibiotics) Adverse Reaction (Severe, Verified 08/02/19 20:50) trouble breathing naproxen [From Naprosyn] Adverse Reaction (Mild, Verified 08/02/19 20:50) Hives Past Medical History - Past Medical History Cardiac Medical History: Denies: Hx Coronary Artery Disease, Hx Heart Attack, Hx Hypertension Pulmonary Medical History: Denies: Hx Asthma, Hx Bronchitis, Hx COPD, Hx Pneumonia Neurological Medical History: Denies: Hx Cerebrovascular Accident, Hx Seizures Renal/ Medical History: Denies: Hx Peritoneal Dialysis GI Medical History: Reports: Hx Gastroesophageal Reflux Disease Musculoskeltal Medical History: Reports Hx Arthritis Past Surgical History: Reports: Hx Appendectomy, Hx Cholecystectomy. Denies: Hx Hysterectomy - Immunizations Hx Diphtheria, Pertussis, Tetanus Vaccination: No Physical Exam - Vital signs Vitals: Temp Pulse Resp BP Pulse Ox 98.2 F 91 20 127/75 H 96 08/02/19 20:40 08/02/19 20:40 08/02/19 20:40 08/02/19 20:40 08/02/19 20:40 Course - Vital Signs Vital signs: Temp Pulse Resp BP Pulse Ox 98.2 F 91 20 127/75 H 96 08/02/19 20:40 08/02/19 20:40 08/02/19 20:40 08/02/19 20:40 08/02/19 20:40
[2019-08-02 21:15] LABS: ABSOLUTE BASOPHILS # (AUTO) 0.1 10^3/uL (0.0-0.2); ABSOLUTE EOSINOPHILS # (AUTO) 0.1 10^3/uL (0.0-0.6); ABSOLUTE LYMPHOCYTES (AUTO) 2.4 10^3/uL (0.5-4.7); ABSOLUTE MONOCYTES (AUTO) 0.4 10^3/uL (0.1-1.4); ABSOLUTE NEUT (AUTO) 6.6 10^3/uL (1.7-8.2); BASOPHILS % (AUTO) 0.8 % (0-2); EOSINOPHILS % (AUTO) 0.9 % (0-6); HEMATOCRIT 38.5 % (36.0-47.0); HEMOGLOBIN 13.2 g/dL (12.0-15.5); LYMPHOCYTES % (AUTO) 24.8 % (13-45); MEAN CORPUSCULAR HEMOGLOBIN 29.1 pg (27.0-33.4); MEAN CORPUSCULAR HGB CONC 34.3 g/dL (32.0-36.0); MEAN CORPUSCULAR VOLUME 85 fl (80-97); MONOCYTES % (AUTO) 4.5 % (3-13); PLATELET COUNT 275 10^3/uL (150-450); RED BLOOD COUNT 4.52 10^6/uL (3.72-5.28); RED CELL DISTRIBUTION WIDTH 13.9 % (11.5-14.0); TOTAL CELLS COUNTED % (AUTO) 100 %; WHITE BLOOD COUNT 9.5 10^3/uL (4.0-10.5)
[2019-08-02 21:29] LABS: APPEARANCE,URINE CLOUDY; BILIRUBIN,URINE NEGATIVE (NEGATIVE); COLOR,URINE YELLOW; GLUCOSE, URINE NEGATIVE (NEGATIVE); KETONES,URINE NEGATIVE (NEGATIVE); LEUKOCYTE ESTERASE,URINE LARGE (NEGATIVE); NITRITE,URINE NEGATIVE (NEGATIVE); PROTEIN,URINE 100 mg/dL (NEGATIVE); URINE SPECIFIC GRAVITY 1.021; UROBILINOGEN,URINE NEGATIVE mg/dL (<2.0)
[2019-08-02 21:36] LABS: ALBUMIN 4.5 g/dL (3.5-5.0); ALKALINE PHOSPHATASE 56 U/L (38-126); ANION GAP 7 (5-19); ASPARTATE AMINO TRANSFERASE 27 U/L (14-36); BILIRUBIN,TOTAL 0.7 mg/dL (0.2-1.3); BLOOD UREA NITROGEN 11 mg/dL (7-20); CALCIUM 9.3 mg/dL (8.4-10.2); CARBON DIOXIDE 29 mmol/L (22-30); CHLORIDE 104 mmol/L (98-107); GLUCOSE 127 mg/dL (75-110); POTASSIUM 4.1 mmol/L (3.6-5.0); TOTAL PROTEIN 7.7 g/dL (6.3-8.2)
--- NOTE | 2019-08-02 21:40 | RADIOLOGY REPORT (SQ) ---
EXAM DESCRIPTION: CT scan of the abdomen and pelvis without contrast CLINICAL HISTORY: 39 years Female; flank pain, hx kidney stones TECHNIQUE: CT of the abdomen and pelvis without intravenous contrast. All CT scans at this facility use dose modulation, iterative reconstruction, and/or weight based dosing when appropriate to reduce radiation dose to as low as reasonably achievable. This exam was performed according to our department optimization program which includes automated exposure control, adjustment of the mA and/or kv according to patient size and/or use of iterative reconstruction technique. COMPARISON: None. FINDINGS: Lower chest:The lung bases are clear. The visualized portion of heart and great vessels are normal. Abdomen: Liver and biliary tree: Gallbladder surgically absent. The unenhanced liver is unremarkable Pancreas: Normal Spleen:Within normal limits Kidneys: Right-sided hydronephrosis and hydroureter is identified secondary to a proximal ureteral stone which measures 7 mm. Distal to this the ureter is decompressed. No other stones are seen in the right kidney. The left kidney is normal. Adrenal glands:Within normal limits Vascular structures:Within normal limits Retroperitoneum: No mass or lymphadenopathy Abdominal wall: normal GI:Bowel is of normal caliber. No focal bowel wall thickening. No obstruction. Appendix: The appendix is not clearly seen. The terminal ileum and cecum appear normal. General: No free air. No free fluid Pelvis: Lymph nodes: No mass or lymphadenopathy Bladder: The bladder is empty. Pelvis: No pelvic mass or adenopathy. Bones: No acute bone findings. IMPRESSION: Right-sided hydronephrosis and hydroureter secondary to a proximal 7 mm obstructing stone.
[2019-08-02] MEDS ORDERED: HYDROMORPHONE HCL INJ/PF 2 MG/ML AMPULE IV ONE (23:36)
[2019-08-02] MEDS ORDERED: ONDANSETRON HCL INJ/PF 4 MG/2 ML SDV IV ONE (23:36)
[2019-08-02] MEDS ORDERED: NORMAL SALINE 1000 ML 1,000 ML IV ONE (23:36)
--- NOTE | 2019-08-03 00:19 | ER Document Report ---
ED GI/ - General Chief Complaint: Abdominal Pain Stated Complaint: POSSIBLE KIDNEY STONE Time Seen by Provider: 08/02/19 20:51 Mode of Arrival: Ambulatory Notes: Patient is a 39-year-old female that comes emergency department for chief complaint of sudden onset right flank pain and right mid to lower abdominal pain. She states she was just walking to the store when it suddenly hit her. She did vomit. She states she passed a small kidney stone once before, denies kidney stone removal or stents. She has had an appendectomy, cholecystectomy, and has a history of GERD. She denies vaginal bleeding or discharge, dysuria, fever/chills. TRAVEL OUTSIDE OF THE [place] IN LAST 30 DAYS: No - Related Data Allergies/Adverse Reactions: Sulfa (Sulfonamide Antibiotics) Adverse Reaction (Severe, Verified 08/02/19 20:50) trouble breathing naproxen [From Naprosyn] Adverse Reaction (Mild, Verified 08/02/19 20:50) Hives Past Medical History - General Information source: Patient - Social History Smoking Status: Never Smoker Drug Abuse: None Lives with: Family Family History: Other - Kidney stones Patient has suicidal ideation: No Patient has homicidal ideation: No - Past Medical History Cardiac Medical History: Denies: Hx Coronary Artery Disease, Hx Heart Attack, Hx Hypertension Pulmonary Medical History: Denies: Hx Asthma, Hx Bronchitis, Hx COPD, Hx Pneumonia Neurological Medical History: Denies: Hx Cerebrovascular Accident, Hx Seizures Renal/ Medical History: Denies: Hx Peritoneal Dialysis GI Medical History: Reports: Hx Gastroesophageal Reflux Disease Musculoskeletal Medical History: Reports Hx Arthritis Past Surgical History: Reports: Hx Appendectomy, Hx Cholecystectomy. Denies: Hx Hysterectomy - Immunizations Hx Diphtheria, Pertussis, Tetanus Vaccination: No Review of Systems - Review of Systems Constitutional: No symptoms reported EENT: No symptoms reported Cardiovascular: No symptoms reported Respiratory: No symptoms reported Gastrointestinal: See HPI Genitourinary: See HPI Female Genitourinary: No symptoms reported Musculoskeletal: No symptoms reported Skin: No symptoms reported Hematologic/Lymphatic: No symptoms reported Neurological/Psychological: No symptoms reported Physical Exam - Vital signs Vitals: Temp Pulse Resp BP Pulse Ox 98.2 F 91 20 127/75 H 96 08/02/19 20:40 08/02/19 20:40 08/02/19 20:40 08/02/19 20:40 08/02/19 20:40 - Notes Notes: GENERAL: Patient does not appear to be in severe pain but does appear to be mildly uncomfortable HEAD: Normocephalic, atraumatic. EYES: Pupils equal, round, and reactive to light. Extraocular movements intact. ENT: Oral mucosa moist, tongue midline. Oropharynx unremarkable. Airway patent. LUNGS: Clear to auscultation bilaterally, no wheezes, rales, or rhonchi. No respiratory distress. HEART: Regular rate and rhythm. No murmur ABDOMEN: There is some generalized tenderness in the right midabdomen but lower abdomen is benign. No guarding or rigidity. Bowel sounds present. GENITOURINARY: Deferred EXTREMITIES: Moves all 4 extremities spontaneously. No edema, normal radial and dorsalis pedis pulses bilaterally. No cyanosis. BACK: no cervical, thoracic, lumbar midline tenderness. No saddle anesthesia, normal distal neurovascular exam. Moves all extremities in full range of motion. NEUROLOGICAL: Alert and oriented x3. Normal speech. Cranial nerves II through XII grossly intact. PSYCH: Normal affect, normal mood. SKIN: Warm, dry, normal turgor. No rashes or lesions noted. Course - Re-evaluation Re-evalutation: Patient has an obstructing 7 mm right-sided kidney stone in the proximal right ureter with hydronephrosis. Patient also has a contaminated urine which is concerning for infection. CBC and chemistry unremarkable, vital signs unremarkable. Patient is comfortable after receiving Dilaudid, Zofran, IV fluids. Discussed with patient, concern for possible infection with large stone and obstruction, she consented to catheterized urine sample. Catheterized urine sample indicates infection as well, culture pending, she has been given Rocephin. Discussed with Dr. Palacio. 08/03/19 01:15 Contacted [facility] transfer center, pending callback. I spoke with Camryn BRANCH), on-call with urology at [facility] with Dr. Caruso. She states that they are on regional diversion in her fall, however she states that they will have the office and urology available in [place] tomorrow, she states that she will provide me with the number and patient is to call at 830 tomorrow, she is to remain n.p.o., they will perform the stent tomorrow. She states that she can be discharged now after Rocephin, given cefdinir and symptom medication with return precautions if she develops a fever before then. Patient's pain was able to be controlled. I discussed this with patient at length and in detail. Patient states satisfaction and agreement with plan. Stable and well-appearing at time of discharge. - Vital Signs Vital signs: Temp Pulse Resp BP Pulse Ox 97.8 F 70 18 119/58 L 98 08/03/19 02:32 08/03/19 02:32 08/03/19 02:32 08/03/19 02:32 08/03/19 02:32 - Laboratory Result Diagrams: 08/02/19 21:00 08/02/19 21:00 Laboratory results interpreted by me: 08/02/19 08/02/19 08/03/19 21:00 21:00 00:11 Glucose 127 H Urine Protein 100 H 30 H Urine Ketones TRACE H Urine Blood MODERATE H Ur Leukocyte Esterase LARGE H MODERATE H Urine Ascorbic Acid 40 H Discharge - Discharge Clinical Impression: Ureterolithiasis Urinary tract infection Qualifiers: Urinary tract infection type: site unspecified Hematuria presence: without hematuria Qualified Code(s): N39.0 - Urinary tract infection, site not specified Condition: Stable Disposition: HOME, SELF-CARE Additional Instructions: I spoke with Andres de, I spoke with Camryn Chung with Dr. Caruso. They state that they would like you to remain nothing by mouth after midnight, please call the office in [facility] at [phone] to be seen this morning with plans to take you to the operating room and have a stent placed. You do have an obstructing 7 mm right-sided kidney stone with a urinary tract infection. You have been given antibiotics and prescribed antibiotics. Take the pain medication and nausea medication provided if needed. Return immediately or go to the closest emergency department if you develop fever, uncontrolled vomiting, severe worsening pain, or any other concerning symptoms. Prescriptions: Cefdinir 300 mg PO Q12H 7 Days #14 capsule Oxycodone HCl/Acetaminophen [Percocet 5-325 mg Tablet] 1 - 2 tab PO TID PRN #15 tablet PRN Reason: Ondansetron [Zofran Odt 4 mg Tablet] 1 - 2 tab PO Q4H PRN #15 tab.rapdis PRN Reason: For Nausea/Vomiting Forms: Return to Work
[2019-08-03 00:49] LABS: APPEARANCE,URINE SLIGHTLY-CLOUDY; BILIRUBIN,URINE NEGATIVE (NEGATIVE); COLOR,URINE YELLOW; GLUCOSE, URINE NEGATIVE (NEGATIVE); KETONES,URINE TRACE mg/dL (NEGATIVE); LEUKOCYTE ESTERASE,URINE MODERATE (NEGATIVE); NITRITE,URINE NEGATIVE (NEGATIVE); PROTEIN,URINE 30 mg/dL (NEGATIVE); UROBILINOGEN,URINE NEGATIVE mg/dL (<2.0)
[2019-08-03] MEDS ORDERED: CEFTRIAXONE 1 GM/D5W RTU 1 GM/50 ML RTUPB IV ONE (01:11)
[2019-08-03] MEDS ORDERED: HYDROCODONE/ACETAMINOPHEN 5-325 MG (6 TAB/ER DISP) PO PRN (02:11)
[2019-08-03] MEDS ORDERED: ONDANSETRON ODT 4 MG TAB (6 TAB/ER DISP) PO PRN (02:12)
[2019-08-03 02:39] VITALS: BP 119/58
== END 2019-08-03 02:39 | disposition home or self-care (01) ==
LOC: ER 20:24
DX: N13.2 Hydronephrosis with renal and ureteral calculous obstruction (principal); N39.0 Urinary tract infection, site not specified
CPT/HCPCS: 99284; 51701; 36415; 87086; 85025; 81025; 87088; 80053; 81001; 74176; J1170; J2405; J7030; J0696

== ENCOUNTER 2019-08-08 20:45 | Emergency (ER) | payer OTHER ==
--- NOTE | 2019-08-08 22:12 | ER Document Report ---
ED Medical Screen (RME) - General Stated Complaint: FLU SYMPTOMS,FLANK PAIN,ABDOMINAL PAIN Primary Care Provider: FREDI CATALAN MD [Primary Care Provider] - Follow up as needed Notes: Patient is a 39-year-old white female who on Saturday had a stent placed in the right ureter at [facility] who presents today with a chief complaint of right flank pain. She states she was also recently exposed to the flu. She admits to some hematuria but told that was good to be normal after the stent. States she has pain with urination particularly in the right flank. I have treated and performed a rapid initial assessment of this patient. A comprehensive ED assessment and evaluation of the patient, analysis of test results and completion of medical decision making process will be conducted by additional ED providers. PHYSICAL EXAMINATION: GENERAL: Well-appearing, well-nourished and in no acute distress. A&Ox4. Answers questions appropriately. TRAVEL OUTSIDE OF THE [place] IN LAST 30 DAYS: No - Related Data Allergies/Adverse Reactions: Sulfa (Sulfonamide Antibiotics) Adverse Reaction (Severe, Verified 08/02/19 20:50) trouble breathing naproxen [From Naprosyn] Adverse Reaction (Mild, Verified 08/02/19 20:50) Hives Past Medical History - Past Medical History Cardiac Medical History: Denies: Hx Coronary Artery Disease, Hx Heart Attack, Hx Hypertension Pulmonary Medical History: Denies: Hx Asthma, Hx Bronchitis, Hx COPD, Hx Pneumonia Neurological Medical History: Denies: Hx Cerebrovascular Accident, Hx Seizures Renal/ Medical History: Denies: Hx Peritoneal Dialysis GI Medical History: Reports: Hx Gastroesophageal Reflux Disease Musculoskeltal Medical History: Reports Hx Arthritis Past Surgical History: Reports: Hx Appendectomy, Hx Cholecystectomy. Denies: Hx Hysterectomy - Immunizations Hx Diphtheria, Pertussis, Tetanus Vaccination: No Physical Exam - Vital signs Vitals: Temp Pulse Resp BP Pulse Ox 99.5 F 112 H 18 117/64 98 08/08/19 21:22 08/08/19 21:22 08/08/19 21:22 08/08/19 21:22 08/08/19 21:22 Course - Vital Signs Vital signs: Temp Pulse Resp BP Pulse Ox 99.5 F 112 H 18 117/64 98 08/08/19 21:22 08/08/19 21:22 08/08/19 21:22 08/08/19 21:22 08/08/19 21:22 Doctor's Discharge - Discharge Referrals: FREDI CATALAN MD [Primary Care Provider] - Follow up as needed
[2019-08-08 22:47] LABS: ABSOLUTE MONOCYTES (AUTO) 0.5 10^3/uL (0.1-1.4); ABSOLUTE NEUT (AUTO) 3.5 10^3/uL (1.7-8.2); BASOPHILS % (AUTO) 0.6 % (0-2); EOSINOPHILS % (AUTO) 0.9 % (0-6); HEMATOCRIT 41.3 % (36.0-47.0); HEMOGLOBIN 14.2 g/dL (12.0-15.5); LYMPHOCYTES % (AUTO) 19.7 % (13-45); MEAN CORPUSCULAR HEMOGLOBIN 29.1 pg (27.0-33.4); MEAN CORPUSCULAR HGB CONC 34.4 g/dL (32.0-36.0); MEAN CORPUSCULAR VOLUME 84 fl (80-97); MONOCYTES % (AUTO) 10.2 % (3-13); PLATELET COUNT 223 10^3/uL (150-450); RED CELL DISTRIBUTION WIDTH 14.2 % (11.5-14.0); SEGMENTED NEUTROPHILS % (AUTO) 68.6 % (42-78); TOTAL CELLS COUNTED % (AUTO) 100 %; WHITE BLOOD COUNT 5.1 10^3/uL (4.0-10.5)
[2019-08-08 22:51] LABS: A TYPE INFLUENZA AG NEGATIVE (NEGATIVE); B INFLUENZA AG POSITIVE (NEGATIVE)
[2019-08-08 22:52] LABS: ALBUMIN 4.4 g/dL (3.5-5.0); ALKALINE PHOSPHATASE 62 U/L (38-126); ANION GAP 11 (5-19); ASPARTATE AMINO TRANSFERASE 28 U/L (14-36); BILIRUBIN,DIRECT 0.3 mg/dL (0.0-0.4); BILIRUBIN,TOTAL 0.5 mg/dL (0.2-1.3); BLOOD UREA NITROGEN 12 mg/dL (7-20); CALCIUM 9.2 mg/dL (8.4-10.2); CARBON DIOXIDE 26 mmol/L (22-30); CHLORIDE 99 mmol/L (98-107); GLUCOSE 132 mg/dL (75-110); POTASSIUM 4.1 mmol/L (3.6-5.0); TOTAL PROTEIN 7.8 g/dL (6.3-8.2)
[2019-08-08 22:57] LABS: APPEARANCE,URINE CLOUDY; BILIRUBIN,URINE NEGATIVE (NEGATIVE); COLOR,URINE YELLOW; GLUCOSE, URINE NEGATIVE (NEGATIVE); KETONES,URINE 20 mg/dL (NEGATIVE); LEUKOCYTE ESTERASE,URINE SMALL (NEGATIVE); NITRITE,URINE NEGATIVE (NEGATIVE); PROTEIN,URINE 100 mg/dL (NEGATIVE); URINE SPECIFIC GRAVITY 1.017; UROBILINOGEN,URINE NEGATIVE mg/dL (<2.0)
[2019-08-09 00:34] VITALS: BP 127/77
[2019-08-09] MEDS ORDERED: OSELTAMIVIR PHOSPHATE 75 MG CAPSULE PO ONE (00:42)
[2019-08-09] MEDS ORDERED: PHENAZOPYRIDINE HCL 200 MG TABLET PO ONE (00:42)
--- NOTE | 2019-08-09 00:52 | ER Document Report ---
ED General - General Chief Complaint: Flank Pain Stated Complaint: FLU SYMPTOMS,FLANK PAIN,ABDOMINAL PAIN Time Seen by Provider: 08/09/19 00:47 Primary Care Provider: FREDI CATALAN MD [Primary Care Provider] - Follow up as needed Mode of Arrival: Ambulatory Information source: Patient Notes: Patient is a 39-year-old female presenting to the emergency department with several complaints. Patient's main complaint is right-sided flank pain. Patient states she has had a ureteral stent placed in [place] this past Saturday and it is due out this coming Saturday. Patient states she is very discomforted by the stent. Patient is also complaining of flulike symptoms s jim today. She has several children who have been diagnosed with influenza and is here for evaluation and treatment. Patient denies nausea vomiting or diarrhea. TRAVEL OUTSIDE OF THE [place] IN LAST 30 DAYS: No - HPI Onset: Last week Onset/Duration: Persistent Quality of pain: Pressure, Throbbing Severity: Moderate Pain Level: 3 Associated symptoms: Chills, Fever, Headache, Sore throat Exacerbated by: Denies Relieved by: Denies Similar symptoms previously: No Recently seen / treated by doctor: Yes - Related Data Allergies/Adverse Reactions: Sulfa (Sulfonamide Antibiotics) Adverse Reaction (Severe, Verified 08/02/19 20:50) trouble breathing naproxen [From Naprosyn] Adverse Reaction (Mild, Verified 08/02/19 20:50) Hives Home Medications: oxycodone, stool softner, cefdiner,zofran Past Medical History - General Information source: Patient - Social History Smoking Status: Never Smoker Chew tobacco use (# tins/day): No Frequency of alcohol use: None Drug Abuse: None Family History: Other - Kidney stones Patient has suicidal ideation: No Patient has homicidal ideation: No - Past Medical History Cardiac Medical History: Denies: Hx Coronary Artery Disease, Hx Heart Attack, Hx Hypertension Pulmonary Medical History: Denies: Hx Asthma, Hx Bronchitis, Hx COPD, Hx Pneumonia Neurological Medical History: Denies: Hx Cerebrovascular Accident, Hx Seizures Renal/ Medical History: Denies: Hx Peritoneal Dialysis GI Medical History: Reports: Hx Gastroesophageal Reflux Disease Musculoskeletal Medical History: Reports Hx Arthritis Past Surgical History: Reports: Hx Appendectomy, Hx Cholecystectomy. Denies: Hx Hysterectomy - Immunizations Hx Diphtheria, Pertussis, Tetanus Vaccination: No Review of Systems - Review of Systems Notes: REVIEW OF SYSTEMS: CONSTITUTIONAL : Per HPI EENT: Denies eye, ear, throat, or mouth pain or symptoms. Denies nasal or sinus congestion. CARDIOVASCULAR: Denies chest pain. RESPIRATORY: Denies cough, cold, or chest congestion. Denies shortness of breath, difficulty breathing, or wheezing. GASTROINTESTINAL: Denies abdominal pain. Denies nausea, vomiting, or diarrhea. Denies constipation. GENITOURINARY: Per HPI MUSCULOSKELETAL: Denies neck or back pain or joint pain or swelling. SKIN: Denies rash or skin lesions. HEMATOLOGIC : Denies easy bruising or bleeding. NEUROLOGICAL: Denies altered mental status or loss of consciousness. Denies headache. Denies weakness or paralysis or loss of use of either side. Denies problems with gait or speech. Denies sensory or motor loss. PSYCHIATRIC: Denies suicidal or homicidal ideations 10 Systems are negative unless otherwise specified above Physical Exam - Vital signs Vitals: Temp Pulse BP Pulse Ox 99.5 F 113 H 117/64 97 08/08/19 21:12 08/08/19 21:12 08/08/19 21:12 08/08/19 21:12 - Notes Notes: PHYSICAL EXAMINATION: GENERAL: Well-appearing, well-nourished and in mild distress. HEAD: Atraumatic, normocephalic. EYES: Pupils equal round and reactive to light, extraocular movements intact, sclera anicteric, conjunctiva are normal. ENT: nares patent, oropharynx clear without exudates. Moist mucous membranes. Minimal erythema to the posterior pharynx no exudates on the tonsillar pillars NECK: Normal range of motion, supple without lymphadenopathy, no appreciable JVD LUNGS: Lungs clear to auscultation bilaterally and equal. No wheezes rales or rhonchi. HEART: Regular rate and rhythm without murmurs ABDOMEN: Soft, nontender, normal bowel sounds. No guarding, no rebound. No masses appreciated. Back: Patient has tenderness to the right flank EXTREMITIES: Active full range of motion, no pitting or edema. No cyanosis. 2+ pulses x4 NEUROLOGICAL: No focal neurological deficits. Moves all extremities spontaneously and on command. SKIN: Warm, Dry, and intact. Normal turgor, no rashes or lesions noted. Course - Re-evaluation Re-evalutation: 08/09/19 00:50 I discussed the laboratory findings with the patient she understands that she has influenza B. Patient be given initial dose of Tamiflu in the emergency department and a prescription for same. Patient likewise is aware of the need to maintain the stent in her right ureter until instructed for her to come out I will add Pyridium to the patient's medical regime for pain management of same. Patient states she does have pain medicines at home. Patient will be discharged home in stable condition. - Vital Signs Vital signs: Temp Pulse Resp BP Pulse Ox 98.7 F 102 H 16 127/77 H 97 08/09/19 00:32 08/09/19 00:32 08/09/19 00:32 08/09/19 00:32 08/09/19 00:32 - Laboratory Result Diagrams: 08/08/19 22:14 08/08/19 22:14 Laboratory results interpreted by me: 08/08/19 08/08/19 08/08/19 22:14 22:14 22:14 RDW 14.2 H Sodium 136.0 L Glucose 132 H ALT 59 H Urine Protein 100 H Urine Ketones 20 H Urine Blood LARGE H Ur Leukocyte Esterase SMALL H Discharge - Discharge Clinical Impression: Influenza B, Ureteral stent retained Condition: Stable Disposition: HOME, SELF-CARE Prescriptions: Phenazopyridine HCl [Pyridium 200 mg Tablet] 200 mg PO TID #15 tablet Oseltamivir Phosphate [Tamiflu 75 mg Capsule] 75 mg PO BID #10 capsule Referrals: FREDI CATALAN MD [Primary Care Provider] - Follow up as needed
== END 2019-08-09 01:10 | disposition home or self-care (01) ==
LOC: ER 20:45
DX: J10.1 Influenza due to other identified influenza virus with other respiratory manifestations (principal); Z96.0 Presence of urogenital implants; R10.9 Unspecified abdominal pain; R50.9 Fever, unspecified; R51 Headache; Z79.891 Long term (current) use of opiate analgesic; Z79.899 Other long term (current) drug therapy; Z79.2 Long term (current) use of antibiotics
CPT/HCPCS: 99283; 36415; 83690; 85025; 81025; 80053; 81001; 87804; J3490 ×2

== ENCOUNTER → 2019-09-21 | Outpatient (CLI) | payer OTHER ==
--- NOTE | 2019-09-21 17:28 | RADIOLOGY REPORT (SQ) ---
EXAM DESCRIPTION: U/S RETROPERITON (RENAL/AORTA) IMAGES COMPLETED DATE/TIME: 09/21/2019 3:46 pm REASON FOR STUDY: (N20.0)CALCULUS OF KIDNEY N20.0 CALCULUS OF KIDNEY COMPARISON: None. TECHNIQUE: Dynamic and static grayscale images acquired of the kidneys and bladder and recorded on P ACS. Additional selected color Doppler and spectral images recorded. LIMITATIONS: None. FINDINGS: RIGHT KIDNEY: Normal size. Normal echogenicity. No solid or suspicious masses. No hydronep hrosis. No calcifications. LEFT KIDNEY: Normal size. Normal echogenicity. No solid or suspicious masses. No hydronephrosis. No calcifications. BLADDER: No masses. OTHER FINDINGS: No other significant finding. IMPRESSION: NORMAL RENAL AND BLADDER ULTRASOUND. TECHNICAL DOCUMENTATION: JOB ID: [id number] 2010 [employer]- All Rights Reserved Reading location - IP/workstation name: [email or web address]
== END ==
LOC: RAD 15:22
PROVIDERS: ATTEND Urology
DX: N20.0 Calculus of kidney (principal)
CPT/HCPCS: 76770